=== PATIENT | female | born 1960 | race Caucasian/White ===

== ENCOUNTER → 2016-12-11 | Outpatient (CLI) | payer BC ==
[~2016-12-11] VITALS: Ht 162.6 cm; Wt 101.6 kg
[~2016-12-11] MED LIST: ADVIL200 MG PO; TYLENOL EXTRA500 MG PO; ZESTORETIC 10-1 EAC1 PO; ZYRTEC10 M3 PO
== END | disposition home or self-care (01) ==
LOC: AMB 09:35
PROC: 0DJD8ZZ Inspection of Lower Intestinal Tract, Via Natural or Artificial Opening Endoscopic (ICD-10-PCS; principal; 2016-12-11)
DX: Z12.11 Encounter for screening for malignant neoplasm of colon (principal); K57.30 Diverticulosis of large intestine without perforation or abscess without bleeding; K64.8 Other hemorrhoids; I10 Essential (primary) hypertension; R01.1 Cardiac murmur, unspecified; E66.01 Morbid (severe) obesity due to excess calories; Z68.38 Body mass index [BMI] 38.0-38.9, adult
CPT/HCPCS: J2250; J3010